=== PATIENT | male | born 1995 | race Caucasian/White ===

== ENCOUNTER 2018-01-12 00:39 | Emergency (ER) | payer MEDICAID, OTHER ==
[2018-01-12] MEDS: ALPRAZOLAM 1 MG TAB PO (03:38)
[2018-01-12] MEDS: KETOROLAC 60 MG INJ IM (03:39)
== END 2018-01-12 04:14 | disposition home or self-care (01) ==
LOC: FTE 00:39
DX: R07.89 Other chest pain (principal)
CPT/HCPCS: 71045; 93005; 96372; 99284-25

== ENCOUNTER 2018-11-15 20:38 | Emergency (ER) | payer MEDICAID ==
[2018-11-15] MEDS: LORAZEPAM 2 MG INJ IM (22:47)
== END 2018-11-16 00:15 | disposition home or self-care (01) ==
LOC: E/R 11-16 00:15
DX: R07.9 Chest pain, unspecified (principal)
CPT/HCPCS: 71045; 93005; 96372; 99284-25